=== PATIENT | male | born 1970 | race Caucasian/White ===

== ENCOUNTER 2018-04-04 08:36 | Emergency (ER) | payer OTHER ==
[~2018-04-04] VITALS: Ht 180.3 cm; Wt 93.6 kg
[2018-04-04] MEDS ORDERED: CELE1CAP9 (08:42)
[2018-04-04] MEDS ORDERED: BUPR1TAB52 PO (08:42)
[2018-04-04] MEDS ORDERED: CETI10TA PO (08:47)
[2018-04-04] MEDS ORDERED: BUSP10TA PO (08:47)
[2018-04-04] MEDS ORDERED: PRAZ5CAP PO (08:47)
[2018-04-04] MEDS ORDERED: ROSU40TA3 PO (08:47)
[2018-04-04] MEDS ORDERED: METO1TAB87 PO (08:47)
[2018-04-04] MEDS ORDERED: SERT-138 PO (08:47)
[2018-04-04] MEDS ORDERED: METF500T13 PO (08:47)
[2018-04-04] MEDS ORDERED: METH1TAB40 PO (08:47)
[2018-04-04] MEDS ORDERED: OMEP40CA2 PO (08:47)
--- NOTE | 2018-04-04 09:25 | REP ---
Chest x-ray: Two views. History: Central chest pain. Comparison chest CT study is from March 31, 2008. Findings: There are granulomatous calcifications in the right perihilar region and right upper lobe region unchanged from the comparison CT study. The lungs are otherwise well inflated and clear. Pleural angles are sharp. Heart size is normal. Pulmonary vasculature is not increased. No significant bony abnormality is seen. There is a levoconvex curve in the upper thoracic spine which is unchanged. Impression: Old granulomatous calcifications on the right. No acute disease. Electronically Signed by Stevo Nino MD 04/04/2018 08:27 P
[2018-04-04] MEDS ORDERED: NAPR-49 PO (09:37)
[2018-04-04] MEDS ORDERED: KETOROLAC 60 MG/2 ML VIAL (J1885) IM ONE (09:45)
[2018-04-04 09:47] VITALS: BP 112/74
--- NOTE | 2018-04-04 10:37 | ECGEPIP ---
Stationary ECG Study [facility] - ED Test Date: 2018-04-04 Pat Name: GRICELDA COLLAZO Department: Room: - Gender: M Personal Counselor: LADI : 1970 Requested By: JUAN C NORRIS PA-C. Order Number: [id number] Reading MD: Juliana Winter Measurements Intervals [place] Rate: 57 P: 26 IN: 156 QRS: 44 QRSD: 83 T: 34 QT: 402 QTc: 391 Interpretive Statements SINUS BRADYCARDIA NO PRIOR FOR COMPARISON Electronically Signed On 04-04-2018 10:37:34 EST by Juliana Winter
== END 2018-04-04 09:53 | disposition home or self-care (01) ==
LOC: M ED 08:36
DX: M54.6 Pain in thoracic spine (principal); M62.830 Muscle spasm of back; J98.4 Other disorders of lung; R00.1 Bradycardia, unspecified; F17.200 Nicotine dependence, unspecified, uncomplicated; Z88.7 Allergy status to serum and vaccine; Z79.899 Other long term (current) drug therapy; Z79.84 Long term (current) use of oral hypoglycemic drugs
CPT/HCPCS: 71046; 93005; 96372; 99284; J1885

== ENCOUNTER → 2023-02-17 | Outpatient (REF) | payer OTHER ==
[~2023-02-17] MED LIST: BUPR1TAB52 PO; BUSP10TA PO; CELE0.09; CETI10TA PO; METF500T13 PO; METH-1164 PO; METO1TAB87 PO; MULTCAP PO; NAPR-837 PO; OMEP40CA4 PO; PRAZ5CAP PO; ROSU40TA4 PO; SERT-138 PO
== END ==
LOC: M LAB REF 14:34
PROVIDERS: ATTEND Internal Medicine Gastroenterology
DX: Z80.0 Family history of malignant neoplasm of digestive organs (principal); R19.7 Diarrhea, unspecified

== ENCOUNTER 2023-07-10 11:48 | Day surgery (SDC) | payer OTHER ==
[~2023-07-10] VITALS: Ht 180.3 cm; Wt 83.5 kg
[~2023-07-10 11:48] MED LIST changes: +CALC0.004 TOP; +JARD1TAB PO; +METH2.5T48 PO; +NAPR1TAB83 PO; +THERTAB52 PO; +TRAM50TA2 PO; +ZOLO100T PO; +fentaNYL 100 MCG/2 ML INJECTION As Ordered ONE
[2023-07-10] MEDS: NS 1,000 ML IV ONE (12:51)
[2023-07-10] MEDS ORDERED: propofoL 200 MG/20 ML VIAL As Ordered ONE (15:05)
[2023-07-10 15:15] VITALS: TEMP 97.3
[2023-07-10 15:28] VITALS: BP 104/55; O2SAT 95
== END 2023-07-10 15:43 | disposition home or self-care (01) ==
LOC: M OPP 11:48
PROVIDERS: ATTEND Internal Medicine Gastroenterology
DX: K63.5 Polyp of colon (principal); K64.0 First degree hemorrhoids; Z80.0 Family history of malignant neoplasm of digestive organs; R19.7 Diarrhea, unspecified; K22.89 Other specified disease of esophagus; R12 Heartburn; E11.9 Type 2 diabetes mellitus without complications; G47.30 Sleep apnea, unspecified; F17.200 Nicotine dependence, unspecified, uncomplicated; Z79.02 Long term (current) use of antithrombotics/antiplatelets; Z79.1 Long term (current) use of non-steroidal anti-inflammatories (NSAID); Z79.621 Long term (current) use of calcineurin inhibitor; Z79.84 Long term (current) use of oral hypoglycemic drugs; Z79.891 Long term (current) use of opiate analgesic; Z79.899 Other long term (current) drug therapy; Z88.7 Allergy status to serum and vaccine
CPT/HCPCS: 43239; 45380; 88305; J3010